=== PATIENT | female | born 1980 | race Caucasian/White ===

== ENCOUNTER → 2016-11-22 | Day surgery (SDC) | payer OTHER ==
[~2016-11-22] VITALS: Ht 167.6 cm; Wt 68.0 kg
[~2016-11-22] MED LIST: MOTRIN800 MG PO; OXYCODONE-ACET1 EACH PO; PERCOCET 325 MG1 TA2 PO
--- NOTE | 2016-11-22 01:51 | ED GI/GU/ABDOMINAL COMPLAINT ---
History of Present Illness General Chief Complaint: Abdominal Pain/Flank Pain Stated Complaint: ABD PAIN AFTER EATING DINNER +V Source: patient Exam Limitations: no limitations Vital Signs & Intake/Output Vital Signs & Intake/Output Vital Signs Date Time Temp Pulse Resp B/P B/P Pulse O2 O2 Flow FiO2 Mean Ox Delivery Rate 11/22 0440 98.0 68 18 110/60 98 Room Air 11/22 0342 97.8 68 18 92/50 98 Room Air 11/22 0138 100.0 72 18 133/82 97 Room Air Allergies Coded Allergies: Penicillins (Severe, HIVES 11/22/16) Reconcile Medications No Known Home Medications Triage Note: PT TO ED C/O RLQ PAIN AFTER SHE ATE DINNER LAST NIGHT AT 10 PM. PT REPORTS PAIN GETTING INCREASINGLY WORSE AND REPORTS 4 EPISODES OF VOMITING. PT C/O 10/10 PAIN AND NAUSEA. PT DENIES FEVER AND CHILLS. Triage Nurses Notes Reviewed? yes ? n Is pt currently ? No Onset: Gradual Duration: hour(s):, waxing and waning Timing: recent history Quality/Severity: cramping Location: right lower quadrant Radiation: no radiation Activities at Onset: eating Prior Abdominal Problems: none Modifying Factors: Worsens With: palpation, vomiting. Associated Symptoms: abdominal pain, nausea/vomiting HPI: 36 yo woman in prior good health presents with nausea and vomiting since 8pm. She notes that she had spaghetti and meatballs at around 7pm and that her symptoms began thereafter. She vomited several times, without diarrhea. She does not feel febrile, nor does she have urinary or vaginal symptoms. She is otherwise well. Past History Travel History Traveled to [place] past 21 day No Medical History Any Pertinent Medical History? see below for history Musculoskeletal: TOE FRACTURE Surgical History Surgical History: multiple orthopedic surgeries in her lower extremities Psychosocial History What is your primary language Israeli Tobacco Use: Never used Family History Hx Contributory? No Review of Systems Review of Systems Constitutional: Reports: no symptoms. EENTM: Reports: no symptoms. Respiratory: Reports: no symptoms. Cardiovascular: Reports: no symptoms. GI: Reports: no symptoms. Genitourinary: Reports: no symptoms. Musculoskeletal: Reports: no symptoms. Skin: Reports: no symptoms. Neurological/Psychological: Reports: no symptoms. Hematologic/Endocrine: Reports: no symptoms. Immunologic/Allergic: Reports: no symptoms. All Other Systems: Reviewed and Negative Physical Exam Physical Exam General Appearance: well developed/nourished, mild distress, moderate distress Head: atraumatic, normal appearance Eyes: Bilateral: normal appearance. Ears, Nose, Throat, Mouth: hearing grossly normal Neck: normal inspection, supple, full range of motion, normal alignment Respiratory: normal breath sounds, chest non-tender, no respiratory distress, quiet respiration Cardiovascular: regular rate/rhythm Gastrointestinal: normal bowel sounds, soft, no organomegaly, mild rlq tenderness to palpation. no rebound. no guarding. Pelvic: normal external exam Back: normal inspection Extremities: normal range of motion Neurologic/Psych: no motor/sensory deficits, awake, alert, oriented x 3 Core Measures ACS in differential dx? No Severe Sepsis Present: No Septic Shock Present: No Progress Differential Diagnosis: appendicitis, biliary colic, cholecystitis, diverticulitis, gastritis, hepatitis Plan of Care: Orders Procedure Date/time Status Add-on Test (ER Only) 11/[address] in observation 11/22 043 Active LIPASE 11/22 012 Complete HEPATIC FUNCTION PANEL 11/23 127 Complete HUMAN BETA HCG SCREEN 11/23 127 Complete CBC WITHOUT DIFFERENTIAL 11/23 127 Complete BASIC METABOLIC PANEL 11/22 012 Complete AMYLASE 11/22 0128 Complete Current Medications Sig/Bravo Start time Last Medication Dose Stop Time Status Admin Sodium Chloride 1,000 ML BOLUS ONE 11/22 0445 UNVr (Normal Saline 0.9%) 11/22 0544 Metronidazole 500 MG ONCE ONE 11/22 0430 AC (Flagyl) 11/22 0529 N/A 1 UNIT (No Carrier) Sodium Chloride 1,000 ML BOLUS ONE 11/22 0415 AC 11/22 (Normal Saline 0.9%) 11/22 0514 0330 Laboratory Tests 11/22/16 0229: Anion Gap 9, Estimated GFR > 60, BUN/Creatinine Ratio 18.8, Glucose 97, Calcium 8.9, Total Bilirubin 0.7, Direct Bilirubin 0.2, AST 16, ALT 25, Alkaline Phosphatase 52, Total Protein 6.7, Albumin 4.1, Amylase 65, Lipase 103, Total Beta HCG NEGATIVE, CBC w Diff NO MAN DIFF REQ, RBC 4.70, MCV 83.7, MCH 27.4, RDW 14.8 H, MPV 9.4, Gran % 86.5 H, Lymphocytes % 7.8 L, Monocytes % 4.6, Eosinophils % 0.8, Basophils % 0.3, Absolute Granulocytes 11.0 H, Absolute Lymphocytes 1.0 L, Absolute Monocytes 0.6, Absolute Eosinophils 0.1, Absolute Basophils 0, PUBS MCHC 32.7 L Diagnostic Imaging: Viewed by Me: CT Scan. Discussed w/RAD: CT Scan. Radiology Impression: abd/pelvic ct... retrocecal appendicitis. Initial ED EKG: none Comments: PATIENT: PARRISH MONTAÑO PRESENT AGE: 36 PATIENT ACCOUNT NO: [id number] : 79 LOCATION: [facility] ORDERING PHYSICIAN: MAHAD JUNIOR MD SERVICE DATE: 11/22/16 EXAM TYPE: CAT - CT ABD & PELVIS W/O IV CONTRAS EXAMINATION: CT ABDOMEN AND PELVIS WITHOUT CONTRAST CLINICAL INFORMATION: Right lower quadrant abdominal pain. Question acute appendicitis. COMPARISON: No relevant prior imaging available. TECHNIQUE: Multidetector volumetric imaging was performed from the superior aspect of the liver through the pubic symphysis. Sagittal and coronal reformatted images were obtained on the technologist's workstation. DLP: 480.6 mGy-cm FINDINGS: LUNG BASES: Lung bases are clear. There is no pleural or pericardial effusion. LIVER, GALLBLADDER, AND BILIARY TREE: The unenhanced liver attenuation is homogeneous and there is no evidence of a discrete hepatic parenchymal mass. The gallbladder is unremarkable. There is no abnormal intrahepatic or extrahepatic biliary ductal dilatation. PANCREAS: Unremarkable. SPLEEN: Unremarkable. ADRENAL GLANDS: Unremarkable. KIDNEYS AND URETERS: Kidneys are symmetric in size. There is no worrisome perinephric inflammation or collection. No hydroureteronephrosis. There is no nephrolithiasis and no worrisome caliber indication along the expected course of the right or left ureter. BLADDER: Unremarkable. GASTROINTESTINAL TRACT: There is inflammatory stranding surrounding the retrocecal appendix. There is no associated fluid collection to suggest perforation. The colon is physiologically distended with stool. The stomach and small bowel are unremarkable. ABDOMINAL WALL: No significant hernia is appreciated. LYMPH NODES: Normal. VASCULAR: The unenhanced abdominal aorta and inferior vena cava are unremarkable. PELVIC VISCERA: There is an anteverted uterus. There is a right adnexal cyst that measures approximately 3.2 cm in transverse dimension. The adnexal structures are suboptimally assessed on this examination due to the absence of intravenous contrast. OSSEOUS STRUCTURES: There is no acute osseous finding. No worrisome lytic or blastic osseous lesion. IMPRESSION: Findings consistent with acute appendicitis. The appendix is retrocecal. DICTATED BY: TREVIN ARENAS MD DATE/TIME DICTATED:11/22/16401 POST MANAGER:NIDHI DATE/TIME TRANSCRIBED:11/22/16401 CONFIDENTIAL, DO NOT COPY WITHOUT APPROPRIATE AUTHORIZATION. <Electronically signed in Other Vendor System> SIGNED BY: TREVIN ARENAS MD 11/22 0410 Departure Departure Disposition: HOME OR SELF CARE Condition: Stable Clinical Impression Primary Impression: Abdominal pain Referrals: GRETA CRUZ,RCISTINA Trevino (PCP/Family) Departure Forms: Customer Survey General Discharge Information Prescriptions: Current Visit Scripts No Known Home Medications OR/GI Note Spoke With: JOLEEN CRUZ,MILY N. ED Treatment Decision: PARRISH MONTAÑO requires urgent operative management or an emergent procedure that cannot be performed in the Emergency Room setting. pt with appendicitis... to OR for appendectomy
[2016-11-22 02:43] LABS: ABSOLUTE BASOPHIL COUNT 0 /CUMM (0.0-0.2); ABSOLUTE EOSINOPHIL COUNT 0.1 /CUMM (0.0-0.7); ABSOLUTE MONOCYTE COUNT 0.6 /CUMM (0.10-0.60); BASOPHIL % 0.3 % (0.0-2.0); EOSINOPHIL % 0.8 % (0-5); GRANULOCYTE % 86.5 % (42.2-75.2); HEMATOCRIT 39.3 % (37-47); MEAN CORPUSCULAR HGB 27.4 PG (27.0-31.0); MEAN CORPUSCULAR HGB CONC 32.7 G/DL (33.0-37.0); MEAN CORPUSCULAR VOLUME 83.7 FL (81.0-99.0); MEAN PLATELET VOLUME 9.4 FL (7.4-10.4); PLATELET COUNT 210 /CUMM (130-400); RBC DISTRIBUTION WIDTH 14.8 % (11.5-14.5); WHITE BLOOD CELL COUNT 12.8 /CUMM (4.8-10.8)
--- NOTE | 2016-11-22 04:10 | CT SCAN REPORT ---
EXAMINATION: CT ABDOMEN AND PELVIS WITHOUT CONTRAST CLINICAL INFORMATION: Right lower quadrant abdominal pain. Question acute appendicitis. COMPARISON: No relevant prior imaging available. TECHNIQUE: Multidetector volumetric imaging was performed from the superior aspect of the liver through the pubic symphysis. Sagittal and coronal reformatted images were obtained on the technologist's workstation. DLP: 480.6 mGy-cm FINDINGS: LUNG BASES: Lung bases are clear. There is no pleural or pericardial effusion. LIVER, GALLBLADDER, AND BILIARY TREE: The unenhanced liver attenuation is homogeneous and there is no evidence of a discrete hepatic parenchymal mass. The gallbladder is unremarkable. There is no abnormal intrahepatic or extrahepatic biliary ductal dilatation. PANCREAS: Unremarkable. SPLEEN: Unremarkable. ADRENAL GLANDS: Unremarkable. KIDNEYS AND URETERS: Kidneys are symmetric in size. There is no worrisome perinephric inflammation or collection. No hydroureteronephrosis. There is no nephrolithiasis and no worrisome caliber indication along the expected course of the right or left ureter. BLADDER: Unremarkable. GASTROINTESTINAL TRACT: There is inflammatory stranding surrounding the retrocecal appendix. There is no associated fluid collection to suggest perforation. The colon is physiologically distended with stool. The stomach and small bowel are unremarkable. ABDOMINAL WALL: No significant hernia is appreciated. LYMPH NODES: Normal. VASCULAR: The unenhanced abdominal aorta and inferior vena cava are unremarkable. PELVIC VISCERA: There is an anteverted uterus. There is a right adnexal cyst that measures approximately 3.2 cm in transverse dimension. The adnexal structures are suboptimally assessed on this examination due to the absence of intravenous contrast. OSSEOUS STRUCTURES: There is no acute osseous finding. No worrisome lytic or blastic osseous lesion. IMPRESSION: Findings consistent with acute appendicitis. The appendix is retrocecal.
[2016-11-22 07:30] VITALS: BP 98/60
--- NOTE | 2016-11-22 08:23 | History & Physical Pre-Op ---
General Information and HPI History of Present Illness: CC: abdominal pain HPI: 36-year-old nonsmoker nondiabetic otherwise healthy started having pain after dinner last night she felt fine the day previous no recent flulike symptoms no recent antibiotics no changes in bowel habits weight or appetite no unusual meals father did have appendicitis approximately at her age no fevers no sweats she did have some associated vomiting initially the pain is relieved by IV analgesics to the right lower quadrant it's constant and doesn't radiate to the back no dysuria no bleeding per rectum pain is not worse on movementI've reviewed the PFSH. No history of GERD, PUD, bleeding problems, heart disease or issues with anesthesia. Surgical history includes bunionectomy family history essentially negative for cancer diabetes or heart disease Allergies/Medications Allergies: Coded Allergies: Penicillins (Severe, HIVES 11/22/16) Home Med list No Known Home Medications Past History Medical History Neurological: NONE EENT: NONE Cardiovascular: NONE Respiratory: NONE Gastrointestinal: NONE Hepatic: NONE Renal: NONE Musculoskeletal: TOE FRACTURE1 Psychiatric: NONE Endocrine: NONE Isolation History: Standard Surgical History Pertinent Surgical History: multiple orthopedic surgeries in her lower extremities Review of Systems Review of Systems: Constitutional: No fever, sweats or weight loss ENMT: No sore throat Cardiovascular: No chest pain, palpitations or leg swelling Respiratory: No shortness of breath, cough, or sputum or dyspnea on exertion GI: No GERD or bleeding per rectum : No dysuria or hematuria Musculoskeletal: No new muscle weakness, bone or joint pain Skin / Breast: No jaundice, rashes or itching Psychiatric: No history of drug or alcohol abuse no depression or anxiety Hematologic / lymphatic system: No problems with excessive bleeding, bruising, or blood clots Exam & Diagnostic Data Last 24 Hrs of Vital Signs/I&O I reviewed Vital Signs Date Time Temp Pulse Resp B/P B/P Pulse O2 O2 Flow FiO2 Mean Ox Delivery Rate 11/22 0742 Room Air 11/22 0730 97.7 74 18 98/60 100 Room Air 11/22 0638 98.0 66 18 91/49 98 Room Air 11/22 0440 98.0 68 18 110/60 98 Room Air 11/22 0342 97.8 68 18 92/50 98 Room Air 11/22 0138 100.0 72 18 133/82 97 Room Air I reviewed Intake & Output 11/22 1600 11/22 0800 11/22 0000 Intake Total 1000 Output Total Balance 1000 Intake, IV 1000 Patient 150 lb Weight Physical Exam: Constitutional: pleasant, no acute distress, conversant Eyes: sclera anicteric ENMT: ears and nose atraumatic, moist mucous membranes, good dentition, no lip lesions Neck: Supple, trachea is midline, no cervical or supraclavicular adenopathy and no palpable thyromegaly Cardiovascular: S1, S2, no murmurs, no peripheral edema Respiratory: clear to auscultation with normal respiratory effort and no intercostal retractions GI: abdomen soft, right lower quadrant point tenderness no rebound or guarding, nondistended, no palpable hepatosplenomegaly Extremities / lymphatics: symmetrically warm, free range of motion no peripheral edema, no cervical, supraclavicular, axillary, or inguinal adenopathy Musculoskeletal: Normal gait and station, no digital cyanosis, good muscle strength and tone no atrophy, motor grossly 5 out of 5 throughout Skin: no jaundice, no rashes warm, nondiaphoretic, no areas of erythema or induration Psychiatric: mood and affect are appropriate and alert and oriented to person place and time Last 24 Hrs of Labs/Aman: I reviewed Laboratory Tests 11/22/16 0229: Anion Gap 9, Estimated GFR > 60, BUN/Creatinine Ratio 18.8, Glucose 97, Calcium 8.9, Total Bilirubin 0.7, Direct Bilirubin 0.2, AST 16, ALT 25, Alkaline Phosphatase 52, Total Protein 6.7, Albumin 4.1, Amylase 65, Lipase 103, Total Beta HCG NEGATIVE, CBC w Diff NO MAN DIFF REQ, RBC 4.70, MCV 83.7, MCH 27.4, RDW 14.8 H, MPV 9.4, Gran % 86.5 H, Lymphocytes % 7.8 L, Monocytes % 4.6, Eosinophils % 0.8, Basophils % 0.3, Absolute Granulocytes 11.0 H, Absolute Lymphocytes 1.0 L, Absolute Monocytes 0.6, Absolute Eosinophils 0.1, Absolute Basophils 0, PUBS MCHC 32.7 L Assessment/Plan Assessment/Plan: Studies I reviewed the CT scan from earlier this morning on PACS myself and shows a thickened retrocecal appendix to some surrounding stranding colon is full of stool. Impression is acute appendicitis. I explained to the patient that this is a potentially life-threatening infection for which I recommend an appendectomy. I feel antibiotics often alone are not enough and sometimes there is an occult malignancy. The severity of infection is related to the chance of perforation which usually increases after about 24 hours fortunately the patient is presenting earlier. Depending on what we find intraoperatively they may be discharged the same day or may need to stay for more IV antibiotics, at depends. I also discussed the possibility of a postoperative infection whether superficial or deep, this is also related to the initial severity and may also appear even a week later after an initial interval of well-being during the recovery. I explained the operation we usually do it laparoscopically rarely converting to open, depending on the amount of inflammation and whether the anatomy is very unusual all to avoid inadvertent injury to surrounding surrounding structures such as bowel and blood vessels and ureter. We also discussed the potential risks, benefits and alternatives to the procedure and surgery in general, issues that included but were not limited to, anesthetic risks hemorrhage requiring transfusion, the risk of transfusion itself, infection, heart attack, stroke, . As Ranked By This Provider Problem List: 1. Acute appendicitis
--- NOTE | 2016-11-22 19:12 | Operative Report ---
Operative/Inv Procedure Report Surgery Date: 11/22/16 Name of Procedure: Laparoscopic appendectomy Pre-Operative Diagnosis: Acute appendicitis Post-Operative Diagnosis: Same Estimated Blood Loss: scant Surgeon/Supervisor Cemetery Workers: MD Dameon Mckeon Anesthesia: general endotracheal tube Operative/Procedure Note Note: Patient was placed on the OR table in the supine position. After successful induction of general anesthesia the patient's abdomen was prepped clipped and draped in the usual sterile fashion The left arm was tucked. Local anesthetic was injected at the top of the umbilicus and entry into the peritoneum was established via the open Widsom technique: a one cm curved incision was made at the top of the umbilicus, the linea alba was secured between 2 pediatric Sudeep clamps and incised vertically, 0-Vicryl stay sutures were placed on each side and then while retracting upwards, the peritoneal layer was entered sharply, then through that small opening, using an S retractor acting like a shoehorn, a 10 mm blunt trocar was inserted obliquely to the right and secured with the stay sutures. The gas was turned on to maximum of 15 mm, two 5 mm dissecting ports were then inserted, one suprapubic and one left lower quadrant, laterally. We used a local anesthetic needle to guide their trajectories, particular attention was given to avoid injury to the bowel, the bladder and the epigastric vessels. Then our attention was directed to the right lower quadrant, the small bowel was swept superiorly and medially, revealing the base of the cecum. An inflamed appendix was then mobilized by it from the lateral and inferior peritoneal attachments using cautery. Using a combination of a [place] dissector, peanut dissector and a Langeloth clamp, a window was developed between the mesoappendix and the base of the appendix, which was adherent retrocecal but the base was not involved. This window is then used to divide the appendix at the base and the mesoappendix with a linear stapling device, separately, using an intestinal cartridge for the appendix and a vascular cartridge, in this case 2 of them, for the mesoappendix; the division of the appendix includes a small flange of cecal base. The appendix is lowered into an Endobag and set aside. The staple lines were checked for bleeding and small oozing was controlled with light zaps of the cautery. We deliberately irrigate the area including up by the liver and down in the pelvis, several rounds, checking the staple lines and each time to make sure that there is no ongoing bleeding. Next the instruments and the trochars and Endobag are removed, letting the gas out. We closed the umbilical fascial incision with a [id number] 0 vicryl suture, then the 3 skin incisions are closed with multiple interrupted subcuticular 4-0 Biosyn sutures, 3 for the umbilical, 1 each for the smaller ones, then covered with Mastisol, Steri-Strips and Band-Aids. EBL minimal Lap and sponge and sponge counts: correct Wound expectancy: infected IV fluids: crystalloid Complications: none Patient tolerated the procedure well was awakened and extubated and returned to the recovery room in satisfactory condition.
== END ==
LOC: ERH 01:18 → STS 07:47 → ERH 12:45
PROVIDERS: Pediatrics
DX: K35.80 Unspecified acute appendicitis (principal)
CPT/HCPCS: 74176; 88304; 96374; 96375; J0131; J0696; J1170; J1885; J2250; J2405; J3010

== ENCOUNTER 2016-11-23 20:44 | Emergency (ER) | payer OTHER ==
[~2016-11-23 20:44] MED LIST changes: -OXYCODONE-ACET1 EACH PO
[2016-11-23] MEDS ORDERED: OXYCODONE-ACET1 EACH PO (21:42)
--- NOTE | 2016-11-23 21:46 | ED GENERAL ADULT ---
History of Present Illness General Chief Complaint: General Adult Stated Complaint: PT ? THE PROCEDURE DONE THINKS IT IS INFECTED Source: patient Exam Limitations: no limitations Vital Signs & Intake/Output Vital Signs & Intake/Output Vital Signs Date Time Temp Pulse Resp B/P B/P Pulse O2 O2 Flow FiO2 Mean Ox Delivery Rate 11/23 2339 70 20 116/78 98 11/239 100.1 78 22 118/64 98 ED Intake and Output 11/24 0000 11/23 1200 Intake Total Output Total Balance Patient 150 lb Weight Allergies Coded Allergies: Penicillins (Severe, HIVES 11/22/16) Reconcile Medications Oxycodone HCl/Acetaminophen (Oxycodone-Acetaminophen 5-325) 5 MG-325 MG TABLET 1 TAB PO AD PRN PAIN (Reported) Triage Note: PER PT HAD APPENDECTOMY YESTERDAY, HAD SAME DAY SURGERY, REPORTS ? INFECTION SWOLLEN, PAINFUL, ITS A MESS. DOES NOT KNOW SURGEON, DID NOT UNDERSTAND ALOT OF WHAT HAPPENED IT WAS ALL SO "CONFUSING" Triage Nurses Notes Reviewed? yes : No Patient currently breastfeeds: No HPI: 11/23/16 9:46 PM 36-year-old female who presents to the emergency department status post laparoscopic appendectomy yesterday. She complains of pain at the incision site. On physical exam there is scant ecchymosis at the umbilical insertion site. No swelling no discharge, no increased warmth. The onset of the symptoms were gradual, the duration has been the last 12 hours, the severity is significant; as her symptoms required her to come to the emergency department for care. Past History Travel History Traveled to [place] past 21 day No Medical History Any Pertinent Medical History? see below for history Neurological: NONE EENT: NONE Cardiovascular: NONE Respiratory: NONE Gastrointestinal: NONE Hepatic: NONE Renal: NONE Musculoskeletal: TOE FRACTURE1 Psychiatric: NONE Endocrine: NONE Surgical History Surgical History: multiple orthopedic surgeries in her lower extremities Psychosocial History What is your primary language Lebanese Tobacco Use: Never used Family History Hx Contributory? No Review of Systems Review of Systems Constitutional: Denies: fever. EENTM: Denies: visual changes. Respiratory: Denies: short of breath. Cardiovascular: Denies: chest pain. GI: Reports: see HPI. Genitourinary: Reports: no symptoms. Musculoskeletal: Reports: no symptoms. Skin: Reports: see HPI. Neurological/Psychological: Reports: no symptoms. Hematologic/Endocrine: Reports: no symptoms. Physical Exam Physical Exam General Appearance: well developed/nourished, alert, awake, anxious, mild distress Head: atraumatic, normal appearance Eyes: Bilateral: normal appearance, PERRL, EOMI. Ears, Nose, Throat: normal pharynx, normal ENT inspection Neck: normal inspection, supple Respiratory: normal breath sounds, chest non-tender, no respiratory distress Cardiovascular: regular rate/rhythm Peripheral Pulses: 4+ radial (R), 4+ radial (L) Gastrointestinal: soft, tenderness, minimal tenderness at the umbilical insertion site, no evidence of wound infection Back: normal range of motion Extremities: no edema Neurologic/Psych: no motor/sensory deficits, awake, alert, oriented x 3 Skin: intact, normal color, warm/dry Core Measures ACS in differential dx? No CVA/TIA Diagnosis: No Severe Sepsis Present: No Septic Shock Present: No Progress Differential Diagnoses I considered the following diagnoses in my evaluation of the patient: [Wound infection, abscess, intra-abdominal infection,] Plan of Care: Orders Procedure Date/time Status COMPREHENSIVE METABOLIC PANEL 11/23 2150 Complete CBC WITHOUT DIFFERENTIAL 11/23 2150 Complete Current Medications Sig/Bravo Start time Last Medication Dose Stop Time Status Admin Ketorolac 30 MG ONCE ONE 11/23 2244 CAN Tromethamine 11/23 2245 (Toradol) Laboratory Tests 11/23/164: Anion Gap 11, Estimated GFR > 60, BUN/Creatinine Ratio 16.3, Glucose 92, Calcium 8.6, Total Bilirubin 0.8, AST 26, ALT 30, Alkaline Phosphatase 40, Total Protein 6.0 L, Albumin 3.4 L, Globulin 2.6, Albumin/Globulin Ratio 1.3, CBC w Diff NO MAN DIFF REQ, RBC 4.24, MCV 83.4, MCH 27.3, RDW 15.2 H, MPV 9.8, Gran % 64.9, Lymphocytes % 25.7, Monocytes % 7.2, Eosinophils % 1.5, Basophils % 0.7, Absolute Granulocytes 5.0, Absolute Lymphocytes 2.0, Absolute Monocytes 0.6, Absolute Eosinophils 0.1, Absolute Basophils 0.1, PUBS MCHC 32.7 L Initial ED EKG: none Departure Departure Disposition: HOME OR SELF CARE Condition: Stable Clinical Impression Primary Impression: Pain at surgical incision Referrals: CRISTINA HERNANDES MD (PCP/Family) Departure Forms: Customer Survey General Discharge Information Comments 11/23/16 11:14 PM The case was discussed with Dr. Rojo the covering surgeon ; he agrees with the plan. The patient is afebrile, no vomiting. Her pain is better with Toradol and Percocet. There is no evidence of infection. Labs are unremarkable, she' ll follow-up with Dr. Belcher on Saturday or return to the emergency department if fever or vomiting or worse pain Critical Care Note Critical Care Note Critical Care Time: non-applicable
[2016-11-23 22:23] LABS: ABSOLUTE BASOPHIL COUNT 0.1 /CUMM (0.0-0.2); ABSOLUTE EOSINOPHIL COUNT 0.1 /CUMM (0.0-0.7); ABSOLUTE MONOCYTE COUNT 0.6 /CUMM (0.10-0.60); BASOPHIL % 0.7 % (0.0-2.0); EOSINOPHIL % 1.5 % (0-5); GRANULOCYTE % 64.9 % (42.2-75.2); HEMATOCRIT 35.4 % (37-47); MEAN CORPUSCULAR HGB 27.3 PG (27.0-31.0); MEAN CORPUSCULAR HGB CONC 32.7 G/DL (33.0-37.0); MEAN CORPUSCULAR VOLUME 83.4 FL (81.0-99.0); MEAN PLATELET VOLUME 9.8 FL (7.4-10.4); PLATELET COUNT 199 /CUMM (130-400); RBC DISTRIBUTION WIDTH 15.2 % (11.5-14.5); RED BLOOD CELL CT 4.24 /CUMM (4.20-5.40); WHITE BLOOD CELL COUNT 7.7 /CUMM (4.8-10.8)
[2016-11-23 23:39] VITALS: BP 116/78
== END 2016-11-23 23:41 ==
LOC: ERH 20:44
PROVIDERS: Emergency Medicine
DX: G89.18 Other acute postprocedural pain (principal)
CPT/HCPCS: 96374; J1885